=== PATIENT | female | born 1960 | race Hispanic/Latino ===

== ENCOUNTER 2023-10-06 09:17 | Inpatient (IN) | payer BC ==
[2023-10-06] VITALS (7 sets, daily range): BP systolic 104–112; BP diastolic 74–78; PULSE 78–85; RESP 16–18; TEMP 98.7–98.8; O2SAT 96–100
[~2023-10-06] VITALS: Ht 149.9 cm; Wt 62.3 kg
[2023-10-06] MEDS: SODIUM CHLORIDE 0.9% 1000ML 1,000 ML IV SCH ×2 (10:39→14:04)
[2023-10-06] MEDS ORDERED: HYDROCHLOROTH12.5 MG (11:06)
[2023-10-06] MEDS ORDERED: METFORMIN HCL500 MG PO (11:06)
[2023-10-06] MEDS ORDERED: MONTELUKAST SOD10 MG PO (11:06)
[2023-10-06] MEDS ORDERED: SIMVASTATIN20 MG PO (11:06)
[2023-10-06] MEDS ORDERED: METOPROLOL TARTRATE INJ 1 MG/ML VIAL IV PRN (13:45)
[2023-10-06] MEDS ORDERED: ALBUTEROL/IPRATROPIUM 3 ML NEB NEB PRN (13:45)
[2023-10-06] MEDS ORDERED: DOCUSATE SODIUM 100 MG CAP PO PRN (13:45)
[2023-10-06] MEDS ORDERED: ONDANSETRON HCL INJ 2MG/ML 2ML 2 MG/ML VIAL IV PRN (13:45)
[2023-10-06] MEDS ORDERED: SIMETHICONE 80 MG CHEW PO PRN (13:45)
[2023-10-06 15:00] LABS: TROPONIN I 0.004 ng/mL (0-0.300)
[2023-10-06 15:15] LABS: CHOL/HDL RATIO 3.6 (3.0-3.6)
[2023-10-06] MEDS: ACETAMINOPHEN 325 MG TAB PO PRN (15:16)
[2023-10-06 15:34] LABS: THYROID STIMULATING HORMONE 0.848 uIU/mL (0.350-4.940)
[2023-10-06] MEDS ORDERED: IOPAMIDOL 370 MG/ML 100 ML INFUS..BTL INJ ONE (17:45)
[2023-10-06] MEDS: FAMOTIDINE 20 MG TAB PO SCH (17:47)
[2023-10-06] MEDS ORDERED: DEXTROSE 50% SYRINGE 50 ML IV PRN (21:00)
[2023-10-06] MEDS: INSULIN LISPRO 100 UNIT/1 ML 3ML VIAL SQ SCH (21:00)
[2023-10-06] MEDS: SIMVASTATIN 20 MG TAB PO SCH (21:01)
[2023-10-06] MEDS: AMOXICILLIN 250 MG CAP PO SCH (21:05)
[2023-10-06] MEDS: MELATONIN 3 MG TAB PO PRN (23:45)
[2023-10-07 00:12] VITALS: BP 109/81; PULSE 68; RESP 18; TEMP 98.8; O2SAT 100
[2023-10-07 09:00] VITALS: BP 109/81; PULSE 68; RESP 18; TEMP 98.8; O2SAT 100
[2023-10-07 09:04] VITALS: BP 119/81; PULSE 78; RESP 18; TEMP 98; O2SAT 100
[2023-10-07] MEDS ORDERED: CYCLOBENZAPRINE5 MG PO (09:30)
[2023-10-07] MEDS: ASPIRIN 81 MG ENTERIC COATED PO SCH (09:34)
[2023-10-07] MEDS: MONTELUKAST SODIUM 10 MG TAB PO SCH (09:35)
== END 2023-10-07 11:10 | disposition home or self-care (01) | DRG 312 ==
LOC: FSED 09:27 → ERHOLD 11:35 → MED/SURG2 13:04
PROVIDERS: ADMIT Internal Medicine; ATTEND Internal Medicine
DX: R55 Syncope and collapse (principal); M79.18 Myalgia, other site; E11.9 Type 2 diabetes mellitus without complications; I10 Essential (primary) hypertension; E78.5 Hyperlipidemia, unspecified; E78.00 Pure hypercholesterolemia, unspecified; I25.2 Old myocardial infarction
CPT/HCPCS: 0223U; 36415; 70450; 70496; 70498; 70551; 72125; 80053; 80061; 80307; 81003; 82550; 82553; 82948; 83036; 83518; 83880; 84443; 84484; 85025; 87400; 93005; 93306; 93880; 94799; 99284; J7030; Q9967